=== PATIENT | female | born 1945 | race Caucasian/White ===

== ENCOUNTER 2022-12-02 15:17 | Outpatient (CLI) | payer MEDICARE, OTHER ==
--- NOTE | 2022-12-04 11:03 | Mammography Report ---
BILATERAL DIGITAL SCREENING MAMMOGRAM 3D/2D: 12/02/2022 CLINICAL: Routine screening. Family history of breast cancer. Comparison is made to exams dated: 07/31/2021 mammogram, 10/27/2018 mammogram, and 10/24/2017 mammogram - [facility]. Both breasts are almost entirely fatty (category a/<25% glandular tissue). No significant masses, calcifications, or other findings are seen in either breast. There has been no significant interval change. IMPRESSION: NEGATIVE There is no mammographic evidence of malignancy. A 1 year screening mammogram is recommended. Based on the Tyrer Cuzick model (a risk assessment model) the patients lifetime risk is 5.2% and her 10 year risk is 5.2%. According to the ACR, ACS, and NCCN guidelines, an annual breast MRI exam evert g with mammogram is recommended if the patients lifetime risk is 20% or greater. This exam was interpreted at Station ID: [id number]. NOTE: For mammograms, a report in lay terms will be sent to the patient. Approximately 15% of breast malignancies will not be visualized mammographically. In the management of a palpable breast mass, a negative mammogram must not discourage biopsy of a clinically suspicious lesion. Electronically Signed By: Gabriel [email or web address]/[email or web address]:12/04/2022 07:24:21 letter sent: No_Letter ACR BI-RADS Category 1: Negative 3341F PARENCHYMAL PATTERN: (F) - The breast(s) demonstrate(s) diffuse fatty replacement. BI-RADS CATEGORY: (1) - 1 Mammogram [id number] 1 year screening LATERALITY: (B)
== END 2022-12-02 15:18 | disposition home or self-care (01) ==
LOC: DI.S 15:17
DX: Z12.31 Encounter for screening mammogram for malignant neoplasm of breast (principal); Z80.3 Family history of malignant neoplasm of breast

== ENCOUNTER 2023-01-19 10:43 | Outpatient (CLI) | payer MEDICARE, OTHER ==
--- NOTE | 2023-01-19 12:53 | DEXA Report ---
PROCEDURE: Dexa Spine and/or Hip INDICATIONS: POSTMENOPAUSAL TECHNIQUE: Dual energy x-ray absorptiometry (DXA) was performed on a [employer] System. Regions measur ed are the AP Spine, femoral neck, and if needed forearm. COMPARISON: None FINDINGS: Lumbar Spine: Bone Mineral Density 1.14 g/cm/cm,T score -0.4. Left Femoral Neck: Bone Mineral Density 0.83 g/cm/cm, T score -1.5. Left Hip: Bone Mineral Density 0.82 g/cm/cm,T score -1.5. (T score greater or equal to -1.0: NORMAL) (T score from -1.1 to -2.4: OSTEOPENIA) (T score less than or equal to -2.5 to: OSTEOPOROSIS) Impression: By WHO criteria, this patient has low bone density (osteopenia). Fracture risk is elevated. Patients with diagnosis of osteoporosis or osteopenia should have regular bone mineral density assess ment. For those eligible for Medicare, routine testing is allowed once every 2 years. Testing frequ ency can be increased for patients who have rapidly progressing disease or for those who are receivin g medical therapy to restore bone mass. Reviewed by: Yobani Mueller MD on 01/19/2023 12:51 PM PDT Approved by: Yobani Mueller MD on 01/19/2023 12:51 PM PDT Station ID: [id number]
== END 2023-01-19 10:44 | disposition home or self-care (01) ==
LOC: DI 10:43
PROVIDERS: ATTEND Student in an Organized Health Care Education/Training Program
DX: M85.89 Other specified disorders of bone density and structure, multiple sites (principal); Z78.0 Asymptomatic menopausal state